=== PATIENT | female | born 1950 | race Caucasian/White ===

== ENCOUNTER 2017-08-30 06:35 | Day surgery (SDC) | payer OTHER ==
[2017-08-30] MEDS ORDERED: PROPOFOL 40 ML (09:04)
== END 2017-08-30 11:15 | disposition home or self-care (01) ==
LOC: GIL 06:35
DX: Z12.11 Encounter for screening for malignant neoplasm of colon (principal); K64.4 Residual hemorrhoidal skin tags; K64.8 Other hemorrhoids
CPT/HCPCS: 45378